=== PATIENT | female | born 1990 | race Two or more races ===

== ENCOUNTER 2022-04-25 17:18 | Emergency (ER) | payer BC, OTHER ==
[~2022-04-25] VITALS: Ht 165.1 cm; Wt 10.5 kg
[2022-04-25 17:23] VITALS: BP 119/79
--- NOTE | 2022-04-25 17:29 | NUR ---
PT AMB TO BED 11.
[2022-04-25] MEDS ORDERED: METOCLOPRAMIDE 10 MG TAB PO ONE (17:40)
[2022-04-25] MEDS ORDERED: ONDANSETRON 4 MG ODT PO ONE (17:40)
--- NOTE | 2022-04-25 17:40 | NUR ---
31/F WALKED IN C/O EPIGASTRIC PAIN X 1MONTH ACCOMPANIED BY NAUSEA AND VOMITING. STATES LAST BM 4 DAYS AGO. DENIES DIARRHEA, DENIES BLOOD IN STOOL. DENIES HEMATEMESIS. AAO4, AMBULATORY, VITALS STABLE. BLOOD DRAWN AND SENT TO LAB. URINE COLLECTED AND SENT TO LAB PMH: SJOGREN;S SYNDROME
[2022-04-25 18:02] LABS: BASOPHILS % (AUTO) 0.5 % (0.0-2.0); EOSINOPHILS # (AUTO) 0.1 K/uL (0-0.4); EOSINOPHILS % (AUTO) 2.3 % (0.0-4.0); HEMATOCRIT 39.3 % (36-48); HEMOGLOBIN 13.4 g/dL (12.0-16.0); LYMPHOCYTES # (AUTO) 1.1 K/uL (2.5-16.5); MEAN CORPUSCULAR HEMOGLOBIN 29 pg (27-31); MEAN CORPUSCULAR HGB CONC 34 g/dL (33-37); MEAN CORPUSCULAR VOLUME 85.6 fL (80-94); MONOCYTES # (AUTO) 0.2 K/uL (0.8-1.0); MONOCYTES % (AUTO) 3.8 % (1.7-9.3); NEUTROPHILS # (AUTO) 4.5 K/uL (1.8-7.7); NEUTROPHILS % (AUTO) 75.4 % (42.2-75.2); PLATELET COUNT (AUTO) 338 K/uL (140-450); RED BLOOD CELL COUNT(AUTO) 4.59 MIL/uL (4.20-5.40); RED CELL DISTRIBUTION WIDTH 13.3 % (11.6-13.7)
[2022-04-25 18:09] LABS: APPEARANCE,URINE CLEAR (CLEAR); BILIRUBIN,URINE NEGATIVE (NEGATIVE); BLOOD, URINE NEGATIVE (NEGATIVE); COLOR,URINE YELLOW (YELLOW); LEUKOCYTE ESTERASE ,URINE NEGATIVE (NEGATIVE); NITRITE, URINE NEGATIVE (NEGATIVE); PH,URINE 6.5 (5.0-9.0); UGLUCOSE NEGATIVE (NEGATIVE)
[2022-04-25 18:23] LABS: ANION GAP 15.9 (8-16); CREATININE 0.8 mg/dL (0.6-1.3); POTASSIUM 3.9 mmol/L (3.5-5.1); TOTAL BILIRUBIN 0.5 mg/dL (0.0-1.0)
[2022-04-25] MEDS ORDERED: METO-486 PO (19:59)
[2022-04-25] MEDS ORDERED: ONDA-188 SL (19:59)
[2022-04-25 20:27] VITALS: BP 119/79
--- NOTE | 2022-04-25 20:28 | NUR ---
Patient discharged with v/s stable. Written and verbal after care instructions given and explained. Patient alert, oriented and verbalized understanding of instructions. Ambulatory with steady gait. All questions addressed prior to discharge. ID band removed. Patient advised to follow up with PMD. Rx of AMBULATORY, REGLAN given. Patient educated on indication of medication including possible reaction and side effects. Opportunity to ask questions provided and answered.
== END 2022-04-25 20:15 | disposition home or self-care (01) ==
LOC: MED 17:18
DX: R11.2 Nausea with vomiting, unspecified (principal); Z20.822 Contact with and (suspected) exposure to COVID-19; Z79.899 Other long term (current) drug therapy
CPT/HCPCS: 36415; 80053; 81003; 81025; 83690; 85025; 87426; 99283; J8597; Q0162